=== PATIENT | male | born 1960 | race Caucasian/White ===

== ENCOUNTER 2024-04-21 08:24 | Outpatient (REF) | payer BC, SELFPAY ==
--- NOTE | ~2024-04-21 | XR_ITS ---
EXAMINATION: XR SHOULDER, RIGHT CLINICAL INFORMATION: M25.519 - Pain in unspecified shoulder COMPARISON: None. TECHNIQUE: AP external rotation, Grashey, scapular Y, and axillary views of the right shoulder. FINDINGS: Normal bone mineralization. No fracture, dislocation, or suspicious bone lesion. Normal alignment. There is mild to moderate degenerative arthritis in the glenohumeral joint with small superior and undersurface spurs. The AC joint demonstrates mild both superior and undersurface spurring. There is a posterolaterally downsloping acromion. No undersurface spurring. The subacromial space is preserved. Remainder of the soft tissue and bony structures appear normal. XR/XR shoulder RT min 2V IMPRESSION: 1. No acute findings right shoulder. 2. Mild to moderate degenerative arthritis in the glenohumeral joint and AC joint. Electronically signed by: Juan Deng MD 04/22/2024 10:45 AM [facility] [place]
--- NOTE | ~2024-04-21 | XR_ITS ---
EXAMINATION: XR SHOULDER, LEFT CLINICAL INFORMATION: M25.519 - Pain in unspecified shoulder COMPARISON: None available. TECHNIQUE: Three views of the left shoulder. FINDINGS: Normal bone mineralization. No fracture, dislocation, or suspicious bone lesion. Normal alignment. Mild degenerative arthritis in the glenohumeral joint. Minimal generative arthritis in the AC joint. No significant undersurface spurring. There is a posterolaterally downsloping acromion. No undersurface spurring. The subacromial space is preserved. Remainder of the soft tissue and bony structures appear normal. XR/XR shoulder LT min 2V IMPRESSION: 1. No acute findings left shoulder. 2. Mild degenerative arthritis in the AC joint and glenohumeral joint Electronically signed by: Juan Deng MD 04/22/2024 10:43 AM [facility]
--- OUTSIDE RECORDS SUMMARY | 2024-04-22 08:50 | XMS_ITS | Patient Health Record ---
Author Organization [facility] Address [address] [place] [address] Care Team Providers Care Supervisor Electric Name Role Phone Bruno Jo MD Primary Care Provider Stephen Mejia Unavailable [phone] Allergies No Known Allergies Reason For Referral [...] W/U Status Risk Notes Problem Tinea unguium (785578253) Tinea unguium (B35.1) Active confirmed Vital Signs Blood pressure diastolic 70 mm Hg 04/09/2024 Height 5ft 6in in 04/09/2024 Blood pressure systolic 120 mm Hg 04/09/2024 Weight 280 lbs 04/09/2024 BMI 45.19 kg/m2 04/09/2024 Procedures Procedure Date Ordered Date Performed Result Body Sit e 30650-QKIXLIR NAIL, 6 OR MORE 05/20/2023 N/A 16915-JFFLNNN NAIL, 6 OR MORE 10/14/2023 N/A 20368-DBGGFQY NAIL, 6 OR MORE 01/16/2024 N/A 98276-KTRSWYL NAIL, 6 OR MORE 04/09/2024 N/A Encounters Encounter Location Date Provider Diagnosis [address] [address] 05/20/2023 Stephen Rohini Tinea unguium B35.1 ; Pain in right toe(s) M79.674 ; Pain in left toe(s) M79.675 and Avulsion of toenail, initial encounter S91.209A [address] [address] 10/14/2023 Stephen Rohini Tinea unguium B35.1 ; Pain in right toe(s) M79.674 and Pain in left toe(s) M79.[address] [address] 01/16/2024 Stephen Rohini Tinea unguium B35.1 ; Pain in right toe(s) M79.674 and Pain in left toe(s) M79.[address] [address] 04/09/2024 Stephen Rohini Tinea unguium B35.1 ; Pain in right toe(s) M79.674 ; Pain in left toe(s) M79.675 and Xerosis of skin L85.[address] [address] 03/04/2024 Stephen Nova Assessments Encounter Date Diagnosis [...] X ray : Foot, right 3V 07/17/2021 70415-AFYFBEO NAIL, 6 OR MORE 07/24/2021 10178-SYGPVPS NAIL, 6 OR MORE 10/02/2021 93505-CKWZRLC NAIL, 6 OR MORE 12/25/2021 68287-HWPCRXC NAIL, 6 OR MORE 04/26/2022 21623-ESAONXR NAIL, 6 OR MORE 07/02/2022 80464-DWWHUQO NAIL, 6 OR MORE 09/17/2022 83645-ZQJWMAL NAIL, 6 OR MORE 12/03/2022 85177-NSUSMNW NAIL, 6 OR MORE 03/04/2023 85226-MDTZWSW NAIL, 6 OR MORE 05/20/2023 13076-PDXGBBN NAIL, 6 OR MORE 10/14/2023 27337-LABGWGY NAIL, 6 OR MORE 01/16/2024 34924-WRIOJHL NAIL, 6 OR MORE 04/09/2024 Next Appt Details Provider Name:Stephen Nova , 07/13/2024 03:15:00 PM, [address] [place] [address], [phone], Insurance Providers Payer Name Payer Address Payer Phone Subscriber Number Group Number Insured Name Patient Relationship to Insured Coverage Start Date Coverage End Date [facility] [address] [place] [address] [phone] [id number] Tony Cadena Self - patient is the insured Medical (General) History Medical History History ICD Code High blood pressure Arthritis Back,Hip,and Knee pain Cataracts Depression Reflux ( GERD) Chicken pox Surgical History Surgery Date(Month/Year) eye surgery 1979,2019 hernia 1966
--- OUTSIDE RECORDS SUMMARY | 2024-04-22 08:50 | XMS_ITS ---
Author Organization [facility] Address [address] [place] [address] Care Team Providers Care Denture Contour Wire Specialist Name Role Phone Bruno Jo MD Primary Care Provider UnavailStephen Vitale Unavailable [phone] REASON FOR VISIT too soon Encounters Encounter Location Date Provider Diagnosis [address] [address] 03/09/2024 Stephen Nova Plan Of Treatment Next Appt Details Provider Name:Stephen Nova , 07/13/2024 03:15:00 PM, [address] [place] [address], [phone], Progress Notes * Tony GUILLAUME IIDOB:1 03/24/1959 (64 yo M)Acc No.[id number]:03/09/2024 Progress Note Patient:?Tony GUILLAUME II Provider:?Stephen Nova DPM :1960???Age:64 Y???Sex:Male Elier e:03/09/2024 Address:[address] [place], [place] [address] Pcp:Bruno Jo MD Subjective: * Chief Complaints: [...] Nova DPM Date:?2024 Generated for Beto mccartney/Ean/Tacos on:?04/22/2024 08:50 AM EST
--- OUTSIDE RECORDS SUMMARY | 2024-04-22 08:51 | XMS_ITS ---
Author Organization [facility] Address [address] [place] [address] Care Team Providers Care Rotary Rig Engine Operator Name Role Phone Bruno Jo MD Primary Care Provider Stephen Mejia Unavailable [phone] Allergies No Known Allergies REASON FOR VISIT [...] Ordered Date Performed Result Body Sit e 02338-LAEUXSH NAIL, 6 OR MORE 04/09/2024 N/A Encounters Encounter Location Date Provider Diagnosis [facility] [address] [address] 04/09/2024 Stephen Nova Tinea unguium B35.1 ; [...] days Pending Test Test Name Order Date 22870-ROYOVDT NAIL, 6 OR MORE 04/09/2024 Next Appt Details Follow Up: prn, Reason: Provider Name:Stephen Nova , 07/13/2024 03:15:00 PM, [address] [place] [address], [phone], Procedure Notes * Category Sub-Category Detail Notes [...] use of a nail nipper and/or dremel-type precision grinder external, to a more viable healthy nail plate [...] to maintain effectiveness in symptomatic relief - 59569 Progress Notes * Tony GUILLAUME IIDOB:1 03/24/1959 (64 yo M)Acc No.[id number]:04/09/2024 Progress Note Patient:?Tony GUILLAUME II Provider:?Stephen Nova DPM :1960???Age:64 Y???Sex:Male Elier e:04/09/2024 Address:[address] [place] [address] Pcp:Bruno Jo MD Subjective: * Chief Complaints: [...] work. ?Marital status: . ?Occupation: [employer]. ???Drug/Alcohol:?AUDIT-C (Standard)?Did you have a drink containing [...] use of a nail nipper and/or dremel-type precision grinder external, to a more viable healthy nail plate [...] to maintain effectiveness in symptomatic relief - 15413.? * Procedure Codes:?10908 DEBRI DE NAIL, 6 OR MORE * [...] for Beto mccartney/Ean/Tacos on:?04/22/2024 08:50 AM EST History and Physical Notes * HPI [...]
--- OUTSIDE RECORDS SUMMARY | 2024-04-22 08:51 | XMS_ITS ---
Author Organization [facility] Address [address] [place] [address] Care Team Providers Care Die Repair Machinist Name Role Phone Bruno Jo MD Primary Care Provider Stephen Mejia Unavailable [phone] REASON FOR VISIT appt too soon Encounters Encounter Location Date Provider Diagnosis [facility] [address] [address] 03/04/2024 Stephen Nova Plan Of Treatment Next Appt Details Provider Name:Stephen Nova , 07/13/2024 03:15:00 PM, [address] [place], [address], Progress Notes * Tony ORLANDO IIDOB:1 03/24/1959 (64 yo M)Acc No.[id number]:03/04/2024 Patient:?Tony ORLANDO II :1960???Age:64 Y???Sex:Male Address:[address] [place] [address], [address] * true * Date:? Generated for Printi bib/Ean/eTransmitting on:?04/22/2024 08:50 AM EST
--- OUTSIDE RECORDS SUMMARY | 2024-04-22 08:51 | XMS_ITS | Clinical Summary ---
Author Organization [facility] ity Address [address] [place] [address] Care Team Providers Care Cash Shortage Investigator Name Role Phone Bruno Jo MD Primary Care Provider [phone] Social History Tobacco Use Types Packs/Day Years [...] age to complete this topic Care Teams Cash Shortage Investigator Relationship Specialty Start Date End Date Bruno Jo MD [address] [place] [address] PCP - General 08/26/22
== END 2024-04-21 08:25 | disposition home or self-care (01) ==
LOC: HO.HOSX 08:24
PROVIDERS: Visit Provider Physician Assistant
DX: M25.512 Pain in left shoulder (principal); M25.511 Pain in right shoulder; M19.011 Primary osteoarthritis, right shoulder; M19.012 Primary osteoarthritis, left shoulder
CPT/HCPCS: 20610; 73030; J1010; J2003

== ENCOUNTER 2024-04-21 12:55 | Outpatient (AMB) | payer BC, SELFPAY ==
--- OUTSIDE RECORDS SUMMARY | 2024-04-21 13:05 | XMS_ITS | Patient Health Record ---
Author Organization [facility] Address [address] [place] [address] Care Team Providers Care Lead Pourer Name Role Phone Bruno Jo MD Primary Care Provider Stephen Mejia Unavailable [phone] Allergies No Known Allergies Reason For Referral No Information Medications Medication SIG (Take, Route, Frequency, Duration) Notes Start Date End Date Status Ammonium Lactate 12 % 1 application Externally to affected areas of dry skin to feet except for between the toes Twice a day for 30 days Active hydroCHLOROthiazide 25 MG TAKE 1 TABLET ONCE A DAY ORALLY 30 DAY(S) Oral for 30 Active amLODIPine Besylate 5 MG as directed Ora lly Once a day Active Fluoxetine Not-Takin g Omeprazole 20 MG 1 capsule 30 minutes before morning meal Orally Once a day for 30 day(s) Active Immunizations Vaccine Route Administration Date Status Comme nts COVID-19 Moderna Vaccine Unknown 02/26/2021 Administered 1st 06/01/20 2nd 06/29/20 Social History Tobacco Use: Social History Observation Description Date Details (start date - stop date) Never Smoker NA - NA Tobacco use other than smoking: Question Answer Notes Are you an other tobacco user? Yes C igars, 2 per day for 15 years Tobacco Control (Standard) Question Answer Notes Tobacco use: Nonsmoker Additional Findings: Tobacco non-user Current no nsmoker AUDIT-C (Standard) Question Answer Notes Did you have a drink containing alcohol in the p ast year? No Points 0 Interpretation Negative Problems Problem Type SNOMED Code ICD Code Onset Dates Problem Status W/U Status Risk Notes Problem Tinea unguium (230186691) Tinea unguium (B35.1) Active confirmed Vital Signs Blood pressure diastolic 70 mm Hg 04/09/2024 Height 5ft 6in in 04/09/2024 Blood pressure systolic 120 mm Hg 04/09/2024 Weight 280 lbs 04/09/2024 BMI 45.19 kg/m2 04/09/2024 Procedures Procedure Date Ordered Date Performed Result Body Sit e 50357-KKGHPAX NAIL, 6 OR MORE 05/20/2023 N/A 27027-FFVECZU NAIL, 6 OR MORE 10/14/2023 N/A 77640-MSXVLPX NAIL, 6 OR MORE 01/16/2024 N/A 65543-KBNNHFI NAIL, 6 OR MORE 04/09/2024 N/A Encounters Encounter Location Date Provider Diagnosis [address] [address] 05/20/2023 Stephen Rohini Tinea unguium B35.1 ; Pain in right toe(s) M79.674 ; Pain in left toe(s) M79.675 and Avulsion of toenail, initial encounter S91.209A [address] [address] 10/14/2023 Stephen Rohini Tinea unguium B35.1 ; Pain in right toe(s) M79.674 and Pain in left toe(s) M79.[address] [address] 01/16/2024 Stephen Rohini Tinea unguium B35.1 ; Pain in right toe(s) M79.674 and Pain in left toe(s) M79.[address] [address] 04/09/2024 Stephen Rohini Tinea unguium B35.1 ; Pain in right toe(s) M79.674 ; Pain in left toe(s) M79.675 and Xerosis of skin L85.[address] [address] 03/04/2024 Stephen Nova Assessments Encounter Date Diagnosis (ICD Code) Assessment Notes Treatment Notes Treatment Clinical Notes Section Notes 05/20/2023 Tinea unguium (ICD-10 - B35.1) 05/20/2023 Pain in right toe(s) (ICD-10 - M79.674) 10/14/2023 Tinea unguium (ICD-10 - B35.1) 10/14/2023 Pain in right toe(s) (ICD-10 - M79.674) 01/16/2024 Tinea unguium (ICD-10 - B35.1) 01/16/2024 Pain in right toe(s) (ICD-10 - M79.674) 04/09/2024 Tinea unguium (ICD-10 - B35.1) 04/09/2024 Pain in right toe(s) (ICD-10 - M79.674) 04/09/2024 Pain in left toe(s) (ICD-10 - M79.675) 01/16/2024 Pain in left toe(s) (ICD-10 - M79.675) 10/14/2023 Pain in left toe(s) (ICD-10 - M79.675) 05/20/2023 Pain in left toe(s) (ICD-10 - M79.675) 05/20/2023 Avulsion of toenail, initial encounter (ICD-10 - S91.209A) 04/09/2024 Xerosis of skin (ICD-10 - L85.3) Plan Of Treatment Pending Test Test Name Order Date X ray : Foot, left 3V 07/17/2021 X ray : Foot, right 3V 07/17/2021 95058-TWKGGEM NAIL, 6 OR MORE 07/24/2021 27092-IHKEMZJ NAIL, 6 OR MORE 10/02/2021 58381-BEQPVKT NAIL, 6 OR MORE 12/25/2021 28078-MCXCVYP NAIL, 6 OR MORE 04/26/2022 34413-BWCDXBB NAIL, 6 OR MORE 07/02/2022 15339-CTBVMQB NAIL, 6 OR MORE 09/17/2022 27171-GLFXJRS NAIL, 6 OR MORE 12/03/2022 56743-NWNVHKT NAIL, 6 OR MORE 03/04/2023 64603-GRPEFIH NAIL, 6 OR MORE 05/20/2023 52924-AMCUKKO NAIL, 6 OR MORE 10/14/2023 07876-BWYBIZO NAIL, 6 OR MORE 01/16/2024 06296-MBCWFXF NAIL, 6 OR MORE 04/09/2024 Next Appt Details Provider Name:Stephen Nova , 07/13/2024 03:15:00 PM, [address] [place] [address], [phone], Insurance Providers Payer Name Payer Address Payer Phone Subscriber Number Group Number Insured Name Patient Relationship to Insured Coverage Start Date Coverage End Date [facility] [address] [place] [address] [id number] Tony Cadena Self - patient is the insured Medical (General) History Medical History History ICD Code High blood pressure Arthritis Back,Hip,and Knee pain Cataracts Depression Reflux ( GERD) Chicken pox Surgical History Surgery Date(Month/Year) eye surgery 1979,2019 hernia 1966
--- OUTSIDE RECORDS SUMMARY | 2024-04-21 13:05 | XMS_ITS | Data Portability ---
Author Organization [place] [facility] Office Address [address] [facility] [place] [address] Care Team Providers Care Mill Work Name Role Phone CORNELIUS DANIEL Primary Care Provider Assessment Encounter Date Assessment Date Assessment LastModified by Organization Details LastModified Time 05/06/2023 05/06/2023 Independent interpretation the x-rays from today and the clinical examination of the left hip shows dramatic end-stage bone against bone severe degeneration the left hip with loss of joint space, subchondral sclerosis, osteophyte formation, extremely limited motion and function but with a body mass index of 47. His right hip shows some moderate to severe arthritic change but the left hip is really end-stage. We? v e discussed the many forms of conservative care for the treatment of the pain and disability of hip arthritis. Prescription and over the counter NSAIDS have been discussed. These have been offered to those patients who can tolerate the medications and have no contraindications . He has been using ibuprofen as well as oxycodone for the pain. Next, we? v e discussed injection into the hip joint with ultrasound or fluoroscopy with a steroid solution. The pros and the cons were discussed and these can be made available on a more infrequent and limited basis. He has had 3 injections into the hip.He reports the most recent injection was not very helpful. Moderation of activities, use of a cane or crutch, exercise modalities were all discussed. Physical therapy can be considered to help with disability and limited motion but has little ability to improve pain. He is using a cane at this time and can barely walk. Finally, we have talked about total hip arthroplasty as the treatment for the intractable hip pain patient. We discussed the potential for total hip arthroplasty. With his body mass index now at 47 he is not a candidate for elective total hip arthroplasty in my practice. I have suggested that he can certainly move onto another orthopedic surgeon. The other option is for him to visit with his primary care physician and try to attack his body weight is aggressively as possible. I believe the ibuprofen is still suitable if he is able to tolerate that. The cane is a good idea. Also noted in his x-ray is a substantial deformity at his pubic symphysis and in the inferior portion of his pelvis. He reports he had a pelvic fracture this year. He does not report a fall or trauma. He was seen in an emergency department or urgent care and told that he had problems at that location. I do not know that that is been sufficiently evaluated. I am going to recommend an MRI scan of his lower pelvis to see what may be happening at the pubic symphysis and the in the lower portion of his pelvis. He will revisit with me in 8 to 10 weeks. No x-ray. We will review the MRI scan and his progress with his body weight. All questions answered. [email or web address] Not available 05/06/2023 08:19:51 Plan of Treatment Reminders Order Date Submit Date Provider Last Modified By Organization Details Last Modified Time Details Appointments None recorded. Lab None recorded. Referral None recorded. Procedures None recorded. Surgeries None recorded. Imaging MRI, pelvis, w/o contrast 2023 024 [facility] ([facility]), [address] [facility] [place], [place], [address], 4 13:40:07 Medication Orders None recorded. Patient TargetsNo targets recorded. Patient Instructions Encounter Date Encounter Id Patient Instructions Last Modified By Organization Details Last Modified Time 05/06/2023 [id number] When You Want to Lose Weight: Care Instructions [email or web address] Not available 05/06/2023 08:21:02 Reason for Referral None Reported. Results Created Date Observation Date Name Description Value Unit Range Abnormal Flag Note LastModifiedBy Organization Detail LastModifiedTime 05/14/19 24 05/12/2023 MRI, pelvi s, w/o contr ast [facility] Access ion Number : [id number] Jeff lua Name: Keron Johnson Medica l Record Number : [id number] Date of : 1959 Date of Exam: 2023 Referr ing Physic marilyn: Henry Blanco rn, Rey villagran [facility] [address] [facility] [place] [address] Exam: MR Pelvis (C-) CPT 98180 Room Descri ption: [place] Siem Espr 1.5 Clinic al Histor y: Multip le fractu res of the pelvis with disrup tion of pelvic surgic al, initia l encoun ter. The patien t report s modera te bilate ral pelvic and hip pain occurr ing daily for 4 years with worsen ing, diffic ulty walkin g. Techni que: MRI of the pelvis was perfor med withou t intrav enous contra st. Compar angel: CT of the pelvis dated 10/05/19 23. Findin gs: Bone and articu lar cartil age: Again seen is fractu re of the periac etabul ar left superi or pubic ramus and left inferi or pubic ramus with mild associ ated marrow edema. Callus format ion is seen about the inferi or pubic ramus fractu re site. There is inferi or positi oning of the medial left pubic bone relati ve to the right by approx imatel y 15 mm, worsen ed as compar ed to prior CT. Vertic ally orient ed fractu re of the right sacral ala with surrou nding marrow edema is seen. There is degene rative change of both sacroi liac joints with subcho ndral marrow edema and bony prolif eratio n around the left sacroi liac joint. No discre te erosio ns at either sacroi liac joint are seen. There is degene rative change in both hips with severe chondr al thinni ng in the left where there is also subcho ndral marrow edema involv ing both the femora l and acetab ular surfac es as well as subcho ndral cysts greate r on the femora l side. No signif icant hip joint effusi ons. Soft tissue s: There is decrea sed muscle bulk of the left psoas with mild edema within the left iliops oas. The iliops oas tendon s appear intact . Mild tendin opathy is seen of the proxim al hamstr ings. No eviden ce of full-t hickne ss tear of the gluteu s minimu s or gluteu s medius tendon s. There is a 1.2 cm left inguin al lymph node. Multip le additi onal subcen timete r bilate ral inguin al lymph nodes are seen. Impres mai: 1. Subacu te left superi or and inferi or pubic rami and right sacral ulnar fractu res with progre ssion of offset at the pubic symphy sis. 2. Decrea sed muscle bulk of the left iliops oas with edema in the left iliops oas, which may reflec t muscle strain or evolvi ng atroph y. 3. Degene rative change in both hips, left greate r than right. 4. Degene rative change in both sacroi liac joints withou t discre te erosio ns to sugges t sacroi liitis . Electr onical ly Signed By: Nubia Ziegler ra, MD [email or web address] [facility] ([facility]) [address] [place], [address], 06/30/2023 10:18:20 05/15/19 24 MRI, pelvi s, w/o contr ast No observ ation record ed. [email or web address] [facility] ([facility]) [address], [place], [address], 06/30/2023 10:18:20 Result Notes None recorded. Procedures Surgical History Date Name Laterality Status Provider Name and Address Organization Details Recorded Time 04/01/2023 Other completed Brooke Hernandez [place] - [facility] 05/06/2023 07:52:29 Imaging Results Imaging Date Name Status LastModified by Organiz ation Details LastModified Time 05/12/2023 MRI, pelvis, w/o contrast completed [facility] ([facility]) [address] [place], [address], 06/30/2023 10:18:20 05/15/2023 MRI, pelvis, w/o contrast completed [email or web address] [facility] ([facility] [address], [place], [address], 06/30/2023 10:18:20 Procedure Notes None recorded. Medical Equipment None Reported. Allergies No known drug allergies Medications Name Sig Start Date Stop Date Status Note LastModified by Organization Details LastModified Time hydrochlorothi azide 25 mg tablet Take 1 tablet every day by oral route. active Not Available Not Available No t Available acetaminophen 500 mg capsule Take 2 capsules every 6 hours by oral route. active Not Available Not Available No t Available oxycodone PRN active Not Available Not Mayra ilable Not Available calcium active Not Available Not Avail able Not Available omeprazole active Not Available Not Av ailable Not Available ibuprofen active Not Available Not Mayra ilable Not Available amlodipine active Not Available Not Av ailable Not Available trazodone active PRN Not Available Not Mayra ilable Not Available Vitals Date Recorded Body height Provider Name an d Address Organization Details Last Updated DateTime 05/06/2023 167.64 cm Brooke Hernandez [facility] 05/06/2023 07:59:19 Date Recorded Body mass index (BMI) Body weight Provider Name and Address Organization Details Last Updated DateTime 05/06/2023 47 kg/m2 458657.38 g Diane Mcgovern [facility] 05/06/2023 08:04:03 Social History Question Answer Notes LastModified by Organizat ion Details LastModified Time Tobacco Smoking Status Current Some Day [facility]/06/[facility]23 07:52:29 What Is Your Level Of Alcohol Consumption? Moderate Information not available 05/06/2023 Do You Or Have You Ever Used E-cigarettes Or Vape? Never Used Electronic Cigarettes Information not available 05/06/2023 What Is Your Occupation? [employer] Information not available 05/06/2023 Do You Or Have You Ever Used Smokeless Tobacco? Never Used Smokeless Tobacco Information not available 05/06/2023 How Much Tobacco Do You Smoke? No Information not available 05/06/2023 How Many Years Have You Smoked Tobacco? 40 Information not available 05/06/2023 Sex: Unknown Functional Status None recorded. Mental Status None recorded. Family History Relationship Description Onset Age of this Age Resolved Age Notes LastModified by Organization Details LastModified Time Mother Diabetes mellitus [email or web address] Not available 2023 07:59:47 Medical History Condition Response Blood Clots / Phlebitis N HIV or AIDS N Heart Problems N High Blood Pressure Y Depression or Anxiety Y Irregular Heartbeat N MRSA N Emphysema / Chronic Bronchitis N Any Other Significant Medical Issues N Reaction to General/Local Anesthesia N Hepatitis / Jaundice N Weight Gain / Loss N Kidney / Bladder Infections N Diabetes N Bleeding Disorder N Hearing Loss N Angina, Heart Failure or Attack N Night Sweats N Seizures / Epilepsy N Osteoarthritis / Rheumatoid arthritis / Other N Cancer N Stroke N Chemical Dependency / Alcoholism N Ulcer / Stomach Bleeding / Indigestion Y Visual Loss or Glaucoma N Psoriasis / Skin Rash N Thyroid Disorder N Heart Disease N Asthma / Shortness of Breath / Sleep Flavorer ea (please specify) N Pulmonary Embolism N Past Encounters Encounter ID Performer Location Encounter Start Date Encounter Closed Date Diagnosis/Indication Diagnosis SNOMED-CT Code Diagnosis ICD10 Code Diagnosis Note [id number] PASCUAL CARRILLO MD [address] [address] 05/06/2023 07:21:50 05/06/2023 10:26:48 Osteoarthritis of left hip joint 2456721340 20279 M16.12 Morbid obesity 054738908 E66.01 Multiple c losed fractures of pelvis with disruption of pelvic [place] 34030282 S32.810A Health Concerns Section Related Observation LastModified by Organization Detai ls LastModified Time None Recorded Concern Status LastModified by Organization Details LastModified Time None Recorded Advance Directives Directive None Recorded Payers Encounter Date Sequence Insurance Name Policy Number Policy Pena Covered Member ID Pena Member ID Guarantor Name 05/06/2023 1 [place] [id number] Faby Guillaume [id number] Tony Guillaume Notes Date Note Type Note Provider Name and Address Organization Details Recorded Time 05/06/2023 text/html Pablo unger presents for evaluation of his left hip. He reports more than 5 years of increasing pain in his left hip. He reports he has had really quite miserable function of the left hip over the last few months. He has had 3 injections in the hip. The first 1 did not help and the second 1 did help him very much but the third 1 did not last. He is taking ibuprofen. He is also taking oxycodone. He is using a cane. He is limping terribly. He cannot really work. He cannot stand up straight. He cannot straighten out his hip. He reports the right hip is not doing great but the left hip is completely intractably painful. He cannot really sleep. He is very unhappy with the left hip. PASCUAL CARRILLO MD [address] [place] [address], [phone], [facility] 05/06/2023 08:21:05
--- OUTSIDE RECORDS SUMMARY | 2024-04-21 13:06 | XMS_ITS ---
Author Organization [facility] Address [address] [place] [address] Care Team Providers Care Industrial Rehabilitation Consultant Name Role Phone Bruno Jo MD Primary Care Provider Stephen Mejia Unavailable [phone] REASON FOR VISIT appt too soon Encounters Encounter Location Date Provider Diagnosis [facility] [address] [address] 03/04/2024 Stephen Nova Plan Of Treatment Next Appt Details Provider Name:Stephen Nova , 07/13/2024 03:15:00 PM, [address] [place] [address], [phone], Progress Notes * Tony ORLANDO IIDOB:1 03/24/1959 (64 yo M)Acc No.[id number]:03/04/2024 Patient:?Tony ORLANDO II :1960???Age:64 Y???Sex:Male Address:[address] [place] [address], [address] * true * Date:? Generated for Printi bib/Ean/eTransmitting on:?04/21/2024 01:06 PM EST
--- OUTSIDE RECORDS SUMMARY | 2024-04-21 13:06 | XMS_ITS ---
Author Organization [facility] Address [address] [place] [address] Care Team Providers Care Plastic Battery Assembler Name Role Phone Bruno Jo MD Primary Care Provider UnavailStephen Vitale Unavailable [phone] REASON FOR VISIT too soon Encounters Encounter Location Date Provider Diagnosis [address] [address] 03/09/2024 Stephen Nova Plan Of Treatment Next Appt Details Provider Name:Stephen Nova , 07/13/2024 03:15:00 PM, [address] [place] [address], [phone], Progress Notes * Toyn GUILLAUME IIDOB:1 03/24/1959 (64 yo M)Acc No.[id number]:03/09/2024 Progress Note Patient:?Tony GUILLAUME II Provider:?Stephen Nova DPM :1960???Age:64 Y???Sex:Male Elier e:03/09/2024 Address:[address] [place], [place] [id number] Pcp:Bruno Jo MD Subjective: * Chief Complaints: * ???1. Too soon. * Medical History:? Objective: * Vitals:? Assessment: Plan: * Treatment: * Images: * The named appointment provid er may or may not be the originator of this progress note, and it is not deemed complete until electronically signed by the appointment provider. Sign off status: Pending * Provider:Federico Nova DPM Date:?2024 Generated for Beto mccartney/Ean/Tacos on:?04/21/2024 01:05 PM EST
--- OUTSIDE RECORDS SUMMARY | 2024-04-21 13:06 | XMS_ITS | Data Portability ---
Author Organization [facility], OFFICE Address [address] [address] Assessment Encounter Date Assessment Date Assessment LastModified by Organization Details LastModified Time 01/11/2022 01/11/2022 We discussed the issues related to his treatment. Mr. 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 LTHR is in We discussed the issues related to his treatment. He has radiographic evidence of end stage arthrosis of the left hip as demonstrated by severe joint space narrowing, subchondral sclerosis and periarticular osteophytes. He has a functional disability from the arthritis. Conservative therapy in the form of NSAIDs and flexibility and muscle strengthening exercises have been insufficiently helpful. Except for his current obesity, total hip arthroplasty is therefore appropriately indicated. We are going to see if we can help with that before scheduling surgery. Hopefully we can get toward a bmi of 40 if possible. We discussed the issues related to total hip arthroplasty in a lot of detail today including the preoperative process, the operative techniques, less invasive techniques, computer-assisted techniques, the types of implants, and the perioperative risks. In addition, we discussed the typical course following surgery and reasonable expectations for recovery, outcome, activity level, and long-term followup. We will work on weight loss first and determine further treatment thereafter. This visit was conducted as a real-time telehealth interactive video visit during this ongoing pandemic. He was identified and consented to this telehealth visit. I spent a total of 25 minutes during this encounter. Greater than 50% of the time was devoted to counseling and coordinating care. This included reviewing records and pertinent studies, discussing diagnostic evaluation and workup, planning therapeutic interventions, and formulating the future disposition of care. sbm Not available 01/11/2022 14:37:14 Plan of Treatment Reminders Order Date Submit Date Provider Last Modified By Organization Details Last Modified Time Details Appointments None record ed. Lab None record ed. Referral None record ed. Procedures None record ed. Surgeries None record ed. Imaging None record ed. Medication Orders None record ed. Patient TargetsNo targets recorded. Patient InstructionsNo instructions recorded. Reason for Referral None Reported. Problems No Known Problems Medical Equipment None Reported. Allergies No known drug allergies Medications Name Sig Start Date Stop Date Status Note LastModified by Organization Details LastModified Time trazodone 50 mg tablet TAKE 1-2 TABLETS BY MOUTH AT BEDTIME, NEEDED active Not Available Not Available No t Available amlodipine 5 mg tablet TAKE 1 TABLET BY MOUTH EVERY DAY active Not Available Not Available No t Available omeprazole 20 mg capsule,delayed release TAKE 1 CAPSULE BY MOUTH EVERY DAY active Not Available Not Available No t Available hydrochlorothia zide 25 mg tablet TAKE 1 TABLET BY MOUTH EVERY DAY active Not Available Not Available No t Available fluoxetine 20 mg capsule TAKE 1 CAPSULE BY MOUTH EVERY DAY active Not Available Not Available No t Available Vitals Date Recorded Body height Body mass index (BMI) Body weight Provider Name and Address Organization Details Last Updated DateTime 01/11/2022 167.64 cm 51.6 kg/m2 579543.56 g Alesia Yen [place] - [facility] 01/11/2022 11:28:33 Social History None recorded. Functional Status None recorded. Mental Status None recorded. Family History Relationship Description Onset Age of this Age Resolved Age Notes LastModified by Organization Details LastModified Time Mother Diabetes mellitus sbm Not available 2021 14:31:58 Mother Chronic renal failure sbm Not available 2021 14:32:12 Father Congestive heart failure sbm Not available 2021 14:32:20 Medical History Condition Response Coronary Artery Disease N Heart Problems N Gout N Anxiety/Depression N Blood Transfusion N Hernia N Migraines N Thyroid Problems N COPD N Pacemaker N Anemia N Ulcers N Heart Attack (ME) N Diabetes N Bleeding Disorder N Orthotics N Arthritis N Seizures/Epilepsy N Blood Clot N Tuberculosis N AIDS/HIV N Cancer N Stroke N Asthma N Peripheral Vascular Disease N High Cholesterol N Hepatitis N Liver Disease N Rheumatoid Arthritis N Pulmonary Embolism N Hypertension N Osteoporosis N Kidney Disease Y Past Encounters Encounter ID Performer Location Encounter Start Date Encounter Closed Date Diagnosis/Indication Diagnosis SNOMED-CT Code Diagnosis ICD10 Code Diagnosis Note [id number] Jorge Mcdonald MD [facility] [address] [place] [address] 01/11/2022 11:20:44 01/13/2022 15:07:30 Health Concerns Section Related Observation LastModified by Organization Detai ls LastModified Time None Recorded Concern Status LastModified by Organization Details LastModified Time None Recorded Advance Directives Directive None Recorded Payers Encounter Date Sequence Insurance Name Policy Number Policy Pena Covered Member ID Pena Member ID Guarantor Name 01/11/2022 1 [place] ([place] [id number] Faby Guillaume [id number] Tony Guillaume Notes Date Note Type Note Provider Name and Address Organization Details Recorded Time 01/11/2022 text/html Hip(s) AthenaReported bypatient.Location:l eft; groin; thigh; buttocks Severity:severe Alleviating Factors:rest; stretching Aggravating Factors:standing; walking; weightbearing; exercise; going from sit to stand Associated Symptoms:no weakness; no numbness; no tingling; no swelling; no redness; no warmth; no ecchymosis; no catching/locking; no popping/clicking; no buckling; no grinding; no instability; no radiation down leg; no drainage; no fever; no chills; no weight loss; no change in bowel/bladder habits Prior Imaging:x ray Previous PT:did not help Jorge Mcdonald MD [address],[facility] [address], [place], [address], [place] - [facility] 01/11/2022 14:37:20
--- OUTSIDE RECORDS SUMMARY | 2024-04-21 13:06 | XMS_ITS | Clinical Summary ---
Author Organization [facility] ity Address [address] [place] [address] Care Team Providers Care Grad Intern Name Role Phone Bruno Jo MD Primary Care Provider [phone] Social History Tobacco Use Types Packs/Day Years Used Date Smoking Tobacco: Every Day Smokeless Tobacco: Never Alcohol Use Standard Drinks/Week Comments Never 0 (1 standard drink = 0.6 oz pur e alcohol) Sex and Gender Information Value Date Recorded Sex Assigned at Not on file Legal Sex Male 12:07 AM EST Gender Identity Not on file Sexual Orientation Not on file Obstetrics History Plan of Treatment Health Maintenance Due Date Last Done Comments DTaP,Tdap,and Td Vaccines (1 - Tdap) 1981 Pneumococcal Vaccine: 50+ Ye ars (1 of 2 - PCV) 1981 Pneumococcal Vaccine: Pediat rics (0 to 5 Years) and At-Risk Patients (6 to 64 Years) (1 of 2 - PCV) 1981 Zoster Vaccines (1 of 2) 01/23/2012 RSV Immunization Patients 60 + Years Old (1 - Risk 60-74 years 1-dose series) 2022 Cholesterol Screening (Lipid Panel) 04/01/2023 Colorectal Cancer Screening: Colonoscopy 04/01/2023 Depression Screening 04/01/2023 HIV Screening 04/01/2023 Hepatitis C Screening 04/01/2023 Social Influencers of Health Screening 04/01/2023 Hypertension/CHF/CAD Annual BMP Blood Test 04/04/2023 COVID-19 Vaccine ( - 2023-2 5 season) 2023 Influenza Vaccine (#1) 2023 HIB Vaccines Aged Out No longer eligi ble based on patient's age to complete this topic HPV Vaccines Aged Out No longer eligi ble based on patient's age to complete this topic Hepatitis A Vaccines Aged Out No long er eligible based on patient's age to complete this topic Hepatitis B Vaccines Aged Out No long er eligible based on patient's age to complete this topic IPV Vaccines Aged Out No longer eligi ble based on patient's age to complete this topic MMR Vaccines Aged Out No longer eligi ble based on patient's age to complete this topic Meningococcal ACWY Vaccine Aged Out N o longer eligible based on patient's age to complete this topic Meningococcal B Vacine Aged Out No lo nger eligible based on patient's age to complete this topic RSV Immunization Patients Un nitin 20 months Aged Out No longer eligible b ased on patient's age to complete this topic Varicella Vaccines Aged Out No longer eligible based on patient's age to complete this topic Care Teams Grad Intern Relationship Specialty Start Date End Date Bruno Jo MD [address] [place] [address] PCP - General 08/26/22
--- OUTSIDE RECORDS SUMMARY | 2024-04-21 13:06 | XMS_ITS ---
Author Organization [facility] Address [address] [place] [address] Care Team Providers Care Power Digger Operator Name Role Phone Bruno Jo MD Primary Care Provider Stephen Mejia Unavailable [phone] Allergies No Known Allergies REASON FOR VISIT Painful nail(s) aggrevated by shoes causing difficulty standing/walking, Skin problem(s) Medications Medication SIG (Take, Route, Frequency, Duration) [...] Once a day for 30 day(s) Active Social History Tobacco Use: Social History Observation [...] ast year? No Points 0 Interpretation Negative Vital Signs Height 5ft 6in in 04/09/2024 Weight 280 lbs 04/09/2024 BMI 45.19 kg/m2 04/09/2024 Blood pressure systolic 120 mm Hg 04/09/19 25 Blood pressure diastolic 70 mm Hg 025 Procedures Procedure Date Ordered Date Performed Result Body Sit e 83514-TYBKNHC NAIL, 6 OR MORE 04/09/2024 N/A Encounters Encounter Location Date Provider Diagnosis [facility] [address] [address] 04/09/2024 Stephen Nova Tinea unguium B35.1 ; Pain in right toe(s) M79.674 ; Pain in left toe(s) M79.675 and Xerosis of skin L85.3 Assessments Encounter Date Diagnosis (ICD Code) Assessment Notes Treatment Notes Treatment Clinical Notes Section Notes 04/09/2024 Tinea unguium (ICD-10 - B35.1) 04/09/2024 Pain in right toe(s) (ICD-10 - M79.674) 04/09/2024 Pain in left toe(s) (ICD-10 - M79.675) 04/09/2024 Xerosis of skin (ICD-10 - L85.3) Plan Of Treatment Medication Medication Name Sig Start Date Stop Date Notes Ammonium Lactate 12 % 1 application Exte rnally to affected areas of dry skin to feet except for between the toes Twice a day for 30 days Pending Test Test Name Order Date [id number]-[id number] NAIL, 6 OR MORE 04/09/2024 Next Appt Details Follow Up: prn, Reason: Provider Name:Stephen Nova , 07/13/2024 03:15:00 PM, [address] [place] [address], [id number], Procedure Notes * Category Sub-Category Detail Notes Debride Nail 6-10 Nail debridement Due to the cl inical pathology outlined in the exam findings, performance of this nail treatment is medically necessary as its management by an unskilled/untrained nonprofessional would put this patients foot and overall health at risk. Therefore, debridement to affected nail(s), as described in exam ( TA, T1, T2, T3, T4, T5, T6, T7, T8, T9 ), was performed exclusively by the physician of record to reduce/remove overall nail length, girth, thickness, subungual debris, and necrotic tissue, by manual and/or electrical means through the use of a nail nipper and/or dremel-type concrete wall grinder operator, to a more viable healthy nail plate or bed tissue 6-10 nails in total. Silver nitrate was used for any petechial bleeding as necessary. Definitive antifungal treatment options, both pharmaceutical and surgical, have been reviewed and discussed with the patient. The patient solely prefers the use of intermittent/as needed professional debridement services for their nail condition and understands the need for additional periodic treatments to maintain effectiveness in symptomatic relief - 53794 Progress Notes * Tony GUILLAUME IIDOB:1 03/24/1959 (64 yo M)Acc No.[id number]:04/09/2024 Progress Note Patient:?Tony GUILLAUME II Provider:?Stephen Nova DPM :1960???Age:64 Y???Sex:Male Elier e:04/09/2024 Address:[address] [place] [address] Pcp:Bruno Jo MD Subjective: * Chief Complaints: * ???Painful nail(s) aggrevate d by shoes causing difficulty standing/walkingSkin problem(s) * HPI: ???Painful Nails:?Pt States Last PCP Visit:?Date:?12/01/2023 ???Skin problems:?Nature:?dryness , scaling.?Location:?B/L .?Duration:?several days.?Course:?worse.? * ROS:?General/Constitutional:?Nausea?denies.?Vomiting?denies.?Hunger Thirst?denies.?Loss appetite?denies.?Chills?denies.?Fatigue?denies.?Fever?denies.?Night Sweats?denies.?Unexplained weight loss?denies.?Unexplained weight gain?denies.?HEENTM:?Dentures?admits.?Dizziness?denies.?Glasses/contacts?admits.?Retinopathy?de nies.?Blurred/double vision?denies.?TMJ?denies.?Discharge/drainage?denies.?Implants?denies.?Sore throat?denies.?Dental implants?denies.?Hard of hearing ?denies.?Difficulty chewing/swallowing/speaking?denies.?Nose bleeds?denies.?Sore mouth?denies.?Respiratory:?On Oxygen?denies.?Pneumonia/pleurisy?denies.?Bronchitis?denies.?Emphysema?denies.?C oughing?denies.?Cough blood?denies.?Shortness of breath?denies.?Wheezing?denies.?Cardiovascular:?Pacemaker?denies.?MVP?denies.?WPW?denies.?CHF?denies.?Heart attack?denies.?Septal defect?denies.?Rapid beat?denies.?Chest pain ?denies.?Atrial Fib.?denies.?Murmur/Palpitations?denies.?Gastrointestinal:?Hemorrhoids?denies.?Stomach/Abdominal pain?denies.?Dark blood stool?denies.?Irritable bowel ?denies.?Constipation?denies.?Diarrhea?denies.?Hematology:?Swelling?denies.?Clots?denies.?Varicose Veins?denies.?Bruising?denies.?Bleeding problem?denies.?Genitourinary:?Blood urine?denies.?Frequent/Painfu/urination/bladder control?denies.?Kidney stones?denies.?Infection (UTI)?denies.?Nephropathy?denies.?sex trans dis (STD)?denies.?Prostate?denies.?Musculoskeletal:?Hammertoes?denies.?Bunions?denies.?Back Pain?denies.?Muscle Cramps/ Resting?denies.?Muscle cramps / walking?denies.?Generalized aches and pains?denies.?Weakness?denies.?Integ.:?Ramirez?denies.?Scars?denies.?Corns/calluses?admits.?Ingrown nails?admits.?Painful nails?admits.?Open Sores?denies.?Rashes?denies.?Neurologic:?Difficulty sleeping?admits.?Brain disorder?denies.?Numbness?denies.?Balance trouble?denies.?Confusion?denies.?Fainting/blackouts?denies.?Tingling?denies.?Tr emors?denies.? * Medical History:? * Surgical History:?eye surger y 1979,2020hernia 1965 * Hospitalization/Major Diagno stic Procedure:?Denies Past Hospitalization * Family History:?Mother: dece ased, Kidney/Liver Disease, diagnosed with Diabetic - NIDDM, Other specified conditions influencing health status.?Father: , Stroke, diagnosed with Unspecified essential hypertension, Unspecified heart disease, Unspecified cerebral artery occlusion with cerebral infarction, Family history of arthritis.? * Social History:?Tobacco Use:?Tobacco use other than smoking?Are you an other tobacco user??Yes Cigars, 2 per day for 15 years ?Tobacco Control (Standard)?Tobacco use:?Nonsmoker ?Additional Findings: Tobacco non-user?Current nonsmoker ???Drugs/Alcohol:?Drugs?Have you used drugs other than those for medical reasons in the past 12 months??No ???Miscellaneous:?Caffeine: yes, 40oz per day. ?Children: yes, 4. ?Exercise: yes, active work. ?Marital status: . ?Occupation: [employer]. ???Drug/Alcohol:?AUDIT-C (Standard)?Did you have a drink containing alcohol in the past year??No ?Points?0 ?Interpretation?Negative * Medications:?TakingamLODIPin e Besylate 5 MG Tablet as directed Orally Once a day hydroCHLOROthiazide 25 MG Tablet TAKE 1 TABLET ONCE A DAY ORALLY 30 DAY(S) Oral Omeprazole 20 MG Capsule Delayed Release 1 capsule 30 minutes before morning meal Orally Once a day Taking amLODIPine Besylate 5 MG Tablet as directed Orally Once a day Taking hydroCHLOROthiazide 25 MG Tablet TAKE 1 TABLET ONCE A DAY ORALLY 30 DAY(S) Oral Taking Omeprazole 20 MG Capsule Delayed Release 1 capsule 30 minutes before morning meal Orally Once a day Not-Taking/PRNFluoxetine Medication List reviewed and reconciled with the patientNot-Taking/PRN Fluoxetine Medication List reviewed and reconciled with the patient * Allergies:?N.K.D.A.yes[Aller gies Verified] Objective: * Vitals:?Ht:5ft 6in, Wt:280, BMI:45.19, Shoe size:10.5DW, BP:120/70mm Hg, Ht-cm: 167.64 cm, Wt-k.01 kg. * Examination: ???Nails: ?NAILS are:?Elongated, overgrown, dystrophic, lytic, greater than 3mm thick, discolored and friable with crumbly malodorous subungual debris, with pain on palpation, TA, T1, T2, T3, T4, T5, T6, T7, T8, T9.?Dermatologic: ?SKIN FINDINGS:?Skin shows sign(s) of, dryness, scaling, in a stocking fashion, no fissure(s) present, B/L.? Assessment: * Assessment: 1.?Tinea unguium - B35.1 (Pr imary)???2.?Pain in right toe(s) - M79.674???3.?Pain in left toe(s) - M79.675???4.?Xerosis of skin - L85.3???Specify :Acute problem, Uncomplicated (3),Rx Management (4)??? Plan: * Treatment: 2.?Xerosis of skin? Start Ammonium Lactate Cream, 12 %, 1 application, Externally to affected areas of dry skin to feet except for between the toes, Twice a day, 30 days, 280, Refills 3.?? * Procedures:?Debride Nail 6-10:?Nail debridement?Due to the clinical pathology outlined in the exam findings, performance of this nail treatment is medically necessary as its management by an unskilled/untrained nonprofessional would put this patients foot and overall health at risk. Therefore, debridement to affected nail(s), as described in exam (?TA, T1, T2, T3, T4, T5, T6, T7, T8, T9?), was performed exclusively by the physician of record to reduce/remove overall nail length, girth, thickness, subungual debris, and necrotic tissue, by manual and/or electrical means through the use of a nail nipper and/or dremel-type concrete wall grinder operator, to a more viable healthy nail plate or bed tissue 6- 10 nails in total. Silver nitrate was used for any petechial bleeding as necessary. Definitive antifungal treatment options, both pharmaceutical and surgical, have been reviewed and discussed with the patient. The patient solely prefers the use of intermittent/as needed professional debridement services for their nail condition and understands the need for additional periodic treatments to maintain effectiveness in symptomatic relief - [id number].? * Procedure Codes:?98322 DEBRI DE NAIL, 6 OR MORE * Preventive Medicine:? ??Counseling:?Discussion:?-13: Office or other outpatient visit for the evaluation and management of an established patient, which required a medically appropriate history and/or examination and LOW level of DECISION MAKING for: 1 STABLE ACUTE UNCOMPLICATED PROBLEM, 2 OR MORE MINOR PROBLEMS, OR 1 STABLE CHRONIC PROBLEM, THAT POSE(S) A LOW RISK FOR MORBIDITY/MORTALITY. The visit on the day of the encounter encompassed interpreting the data and educating the patient as to the nature of their condition, treatment options available according to their individual PMH, meds, allergies, and overall health/living conditions, as well as any potential risks or complications that may occur from a failure to adhere to, and participate in, the recommended course of therapy. The discussion included a complete verbal, and/or written explanation of the examination results, any x-rays taken, the proposed diagnosis, and outline of the treatment plan. A schedule for future care needs was also explained. The patient verbalized an understanding of the instructions at this time and agreed to be an active participant in their treatment. If the patient should think of any questions or concerns after the visit, I have encouraged the patient to call the office.?Xerosis:?The patient was counseled on the diagnosis, potential etiologies, and treatment options for their skin condition. We discussed the risks and benefits of each option from performing no treatment, to utilizing OTC topical skin creams/ointments, to utilizing prescription topical creams/ointments, to utilizing customized compounded topical medications and use of nocturnal occlusion with any/all previously detailed therapies. We discussed the advantages and disadvantages of each possible treatment and importance for adherence to all the recommended therapies for optimum success and avoid potential complications such as open sore/infection/possible hospitalization. We discussed the potential effectiveness of each topical preparation as well as each ones possible side effects and/or patient medication interactions. Patient questions re: use, dosage, successful outcomes, and application consistency were reviewed and the patient verbalized that all answers were clearly understood. The patient has decided to apply Rx skin creams to their feet save the interspaces while paying special attention to the heels. Such was sent to their pharmacy at the time of visit.? ??Screening/Special Tests:?Fall Risk?Screening:?No falls in the past year ?FALLS: Screening for Future Fall Risk?Have you had any falls with injury in the past year??No * Follow Up:?prn * Images: * Sign off status: Completed true * Provider:?Stephen Nova DPM Date:?2024 Generated for Beto mccartney/Ean/Tacos on:?04/21/2024 01:05 PM EST History and Physical Notes * HPI (History of Present Illness) Category Sub-Category Detail Notes Category Not es Painful Nails Pt States Last PCP Visit: Date:: 12/01/2023 Skin problems Nature: dryness , scaling Location: B/L Duration: several days Course: worse Examination Category Sub-Category Detail Notes Category Not es Dermatologic SKIN FINDINGS: Skin shows sign( s) of, dryness, scaling, in a stocking fashion, no fissure(s) present, B/L Nails NAILS are: Elongated, overg rown, dystrophic, lytic, greater than 3mm thick, discolored and friable with crumbly malodorous subungual debris, with pain on palpation, TA, T1, T2, T3, T4, T5, T6, T7, T8, T9
--- NOTE | 2024-04-21 13:10 | A.OFFVIS_ITS ---
Vital Signs 04/21/24 13:16 Height 5 ft 6 in Weight 290 lb BMI 46.8 Intake Visit Reasons: MEDICAL DOCTOR- Bilat shoulder pain Intake Note: Tony is a 64 year old right hand dominant male who presents today for a new patient evaluation of bilateral shoulder pain. Patient reports his pain has been present for about 3 months after he lifted a heavy object, working on a machine. His pain is equal in both of his shoulders. States with activity such as lifting or ROM his pain increases. His pain radiates down his arm. No strength in his arms. Occasional numbness or tingling. Finds some relief with ibuprofen and Tylenol. Allergies No Known Allergies [No Known Allergies*] Allergy (Unverified 04/21/24 13:21) HPI HPI MEDICAL DOCTOR- Bilat shoulder pain: Details: Mr. Guillaume is a 64-year-old right-hand dominant male who presents to the office today for evaluation of bilateral shoulder pain. He reports that he has had shoulder pain for the past 3 months after he lifted a heavy object while working on machinery. His pain is equal in bilateral shoulders.states that lifting pushing or pulling and some motions cause an increase in pain. He reports that the pain radiates down his biceps to the elbow. He has occasional numbness and tingling. He has noticed a decrease in strength in bilateral upper extremities. He does have some relief with ibuprofen and Tylenol. [facility] Social History (Updated 04/21/24 @ 13:16 by LAKHWINDER Spears) Patient Tobacco Use Status: Current everyday Tobacco user Current occupational status: employed Current occupation: gordon, right hand dominant Review of Systems Const All systems reviewed & are unremarkable except as noted in HPI and below Physical Exam Vital Signs: BMI result Body Mass Index 46.8 Extrem Other: Right/Left shoulder: Normal to inspection. No ecchymosis, erythema, or edema. Full shoulder ROM in all planes but reports pain with the last 45 degrees of forward flexion and abduction. Positive pain with cross-body reach. 4-5 strength with empty can. Negative drop arm. NVI. Office Procedures AMB Joint Injection/Aspiration Joint Injection/Aspiration Primary Site: left shoulder Secondary Site: other Prep: site was prepped using aseptic technique, ethochloride spray was applied and injection warnings given Injected: 80 mg of, DepoMedrol, with 8 mL of (2% plain lido ) and in the subc romial space Approach Used: posterolateral Procedure: The patient tolerated the procedure well, but had some pain with the injection and there was some relief with the local anesthesia Coding 82106 - Large joint Procedure code (CPT) selection complete Assessment & Plan Assessment & Plan (1) Arthritis of both glenohumeral joints: Code(s): M19.011 - Primary osteoarthritis, right shoulder; M19.012 - Primary osteoarthritis, left shoulder Category: Medical (2) Bilateral acromioclavicular joint arthritis: Code(s): M19.011 - Primary osteoarthritis, right shoulder; M19.012 - Primary osteoarthritis, left shoulder Category: Medical Plan Mr. Guillaume is a 64-year-old right-hand dominant male who presents to the office today for evaluation of bilateral shoulder pain. He reports that he has had shoulder pain for the past 3 months after he lifted a heavy object while working on machinery. His pain is equal in bilateral shoulders.states that lifting pushing or pulling and some motions cause an increase in pain. He reports that the pain radiates down his biceps to the elbow. He has occasional numbness and tingling. He has noticed a decrease in strength in bilateral upper extremities. He does have some relief with ibuprofen and Tylenol. While in the office today we discussed the role of cortisone injection which the patient has elected to move forward with. The patient was offered a cortisone injection in bilateral shoulder with 80 mg of DepoMedrol. The patient was explained the risks, benefits, and alternatives to receiving this injection. After receiving consent for the injection, the patient had the procedure done while in the office today. The patient tolerated the procedure well with no complications. Follow-up will be p.r.n., or sooner if needed X-rays of bilateral shoulders which were obtained while in the office today and were reviewed by me, Juanita Gonzales PA-C, revealed bilateral shoulder glenohumeral joint arthritis as well as AC joint arthritis. Orders: Orders XR shoulder LT min 2V 04/21/24 M25.519 - Pain in unspecified shoulder XR shoulder RT min 2V 04/21/24 M25.519 - Pain in unspecified shoulder Coding Level of Care Code New Pt Level 3 (32673) Diagnoses Arthritis of both glenohumeral joints M19.011; M19.012 Bilateral acromioclavicular joint arthritis M19.011; M19.012 CPT Codes Coding - 36261 Large joint: 12240 - Large joint ([id number])
[2024-04-21 13:16] VITALS: BMI 46.8
== END 2024-04-21 13:56 | disposition home or self-care (01) ==
PROVIDERS: Visit Provider Physician Assistant
DX: M19.012 Primary osteoarthritis, left shoulder (principal); M19.011 Primary osteoarthritis, right shoulder
CPT/HCPCS: 20610; 99203

== ENCOUNTER → 2024-04-21 12:59 | Outpatient (BNV) | payer BC, SELFPAY | PROVIDERS: Visit Provider Radiology Diagnostic Radiology | DX: M19.011 Primary osteoarthritis, right shoulder (principal); M19.012 Primary osteoarthritis, left shoulder | CPT/HCPCS: 73030 ==

== ENCOUNTER 2024-06-04 11:08 | Outpatient (REF) | payer BC, SELFPAY ==
--- NOTE | ~2024-06-04 | XR_ITS ---
EXAMINATION: XR PELVIS 1-2 VIEWS HISTORY: M25.559 - Pain in unspecified hip COMPARISON: Comparison is made with prior outside studies from [facility] dated 10/02/2022. FINDINGS: A single AP view of the pelvis is submitted. Again seen is a chronic fracture deformity of the left superior and inferior pubic rami. There is greater inferior displacement of the fracture fragment when compared to the prior study. No acute fracture or dislocation is seen. There is severe osteoarthritis of the left hip with joint space narrowing, osteophyte formation, and subchondral cyst formation. There has been progression since the prior study. There is mild narrowing of the right hip. The sacroiliac joints are maintained. The soft tissues are unremarkable. XR/XR pelvis 1-2V IMPRESSION: 1. Severe osteoarthritis of the left hip with progression since the prior study. 2. Chronic fracture deformity of the left pubis with greater inferior displacement of the fracture fragment. Electronically signed by: Sumit Winslow MD 06/04/2024 02:53 PM EDT
== END 2024-06-04 11:09 | disposition home or self-care (01) ==
LOC: HO.HOSX 11:08
PROVIDERS: Visit Provider Orthopaedic Surgery
DX: M25.559 Pain in unspecified hip (principal); M16.52 Unilateral post-traumatic osteoarthritis, left hip
CPT/HCPCS: 72170

== ENCOUNTER 2024-06-04 11:08 | Outpatient (AMB) | payer BC, SELFPAY ==
--- NOTE | 2024-06-04 11:13 | MHC.OFFVIS ---
Intake Visit Reasons: New Prob - Left Hip Pain Intake Note: Tony is a 64 year old male who presents today for a new problem visit with complaints of Left Hip pain. Patient was referred by Juanita Gonzales to discuss possible Left REBEL. Patient reports that he has had ongoing left hip pain for about 5 years now. History of cortisone injections with NEOS. The injection was helpful for a few months, this was over two years ago. About a year ago he had QC Kinetix which did help. His pain is felt in the groin and lateral aspect of the hip. He reports that he also had history of a pelvis fracture that was increasing his pain . Allergies No Known Allergies [No Known Allergies*] Allergy (Unverified 04/21/24 13:21) HPI HPI New Prob - Left Hip Pain: Details: This is a 64-year-old gentleman who comes in today with left hip pain. 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 He uses a cane he walks with a bad limp. He has been having worsening difficulty after a pelvic ring injury sustained about 18 months ago. He states he stepped awkwardly into did and presented to the emergency department. He was seen at a local orthopedic office and referred out to [facility] and to a trauma surgeon there who recommended nonoperative management. He has been having worsening pain in his left groin. He describes difficulty getting into and out of a vehicle and pain with bending activities. Most of his pain is anterior left hip/groin. He is overweight and states he has been heavy my whole life . His BMI is 46. He reports being active and healthy but having a hard time completing his work activities. 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 [facility] Social History (Updated 04/21/24 @ 13:16 by LAKHWINDER Spears) Patient Tobacco Use Status: Current everyday Tobacco user Current occupational status: employed Current occupation: gordon, right hand dominant Physical Exam Extrem Other: Trendelenburg gait with minimal internal rotation of the left hip. Positive impingement test. Abduction to 10 degrees. 2+ dorsalis pedis pulse of the ipsilateral leg and hip flexion to 90 degrees. Results Reviewed Results Reviewed: Severe left hip osteoarthritis with ipsilateral injury to the superior pubic rami with pubic symphysis diastasis/displaced left inferior pubic rami. Imaging from 2023 shows moderate to severe osteoarthritis. Assessment & Plan Assessment & Plan (1) Post-traumatic osteoarthritis of left hip: Code(s): M16.52 - Unilateral post-traumatic osteoarthritis, left hip Category: Medical Plan: This is a 62-year-old gentleman with severe osteoarthritis of the left hip. 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 He is morbidly obese but he can not function and he would benefit from hip arthroplasty. Imaging demonstrates a history of superior pubic rami fracture with pubic symphysis irregularity. There is a inferiorly displaced left pubic symphyseal fragment with malunion of the superior pubic rami. I think this is a potentially difficult case with some question of pelvis discontinuity and that a referral to a tertiary care center for evaluation would be warranted. He is amenable to this plan. Orders: Orders XR pelvis 1-2V Today M25.559 - Pain in unspecified hip Coding Level of Care Code Est Pt Level 4 (49441) Diagnoses Post-traumatic osteoarthritis of left hip M16.52
--- OUTSIDE RECORDS SUMMARY | 2024-06-04 13:00 | XMS_ITS ---
Author Organization [facility] Address [address] [place] [address] Care Team Providers Care Scribing Machine Operator Name Role Phone Bruno Jo MD Primary Care Provider Stephen Mejia Unavailable [phone] REASON FOR VISIT appt too soon Encounters Encounter Location Date Provider Diagnosis [facility] [address] [address] 03/04/2024 Stephen Nova Plan Of Treatment Next Appt Details Provider Name:Stephen Nova , 07/13/2024 03:15:00 PM, [address] [place], [address], Progress Notes * Tony ORLANDO IIDOB:1 03/24/1959 (64 yo M)Acc No.[id number]:03/04/2024 Patient:?Tony ORLANDO II :1960???Age:64 Y???Sex:Male Address:[address] [place] [address], [address] * true * Date:? Generated for Printi ng/Fablankg/eTransmitting on:?06/04/2024 01:00 PM EDT
--- OUTSIDE RECORDS SUMMARY | 2024-06-04 13:00 | XMS_ITS ---
Author Organization [facility] Address [address] [place] [address] Care Team Providers Care Project Intern Name Role Phone Bruno Jo MD Primary Care Provider UnavailStephen Vitale Unavailable [phone] REASON FOR VISIT too soon Encounters Encounter Location Date Provider Diagnosis [address] [address] 03/09/2024 Stephen Nova Plan Of Treatment Next Appt Details Provider Name:Stephen Nova , 07/13/2024 03:15:00 PM, [address] [place] [address], [phone], Progress Notes * Tony GUILLAUME IIDOB:1 03/24/1959 (64 yo M)Acc No.[id number]:03/09/2024 Progress Note Patient:?Tony GUILLAUME II Provider:?Stephen Nova DPM :1960???Age:64 Y???Sex:Male Elier e:03/09/2024 Address:[address] [place], [place] [address] Pcp:Bruno Jo MD Subjective: * Chief Complaints: [...] Nova DPM Date:?2024 Generated for Beto mccartney/Ean/Tacos on:?06/04/2024 01:00 PM EDT
--- OUTSIDE RECORDS SUMMARY | 2024-06-04 13:00 | XMS_ITS | Patient Health Record ---
Author Organization [facility] Address [address] [place] [address] Care Team Providers Care Internet And E Business Project Manager Name Role Phone Bruno Jo MD Primary Care Provider Stephen Mejia Unavailable [phone] Allergies No Known Allergies Reason For Referral [...] W/U Status Risk Notes Problem Tinea unguium (273995142) Tinea unguium (B35.1) Active confirmed Vital Signs Blood pressure diastolic 70 mm Hg 04/09/2024 Height 5ft 6in in 04/09/2024 Blood pressure systolic 120 mm Hg 04/09/2024 Weight 280 lbs 04/09/2024 BMI 45.19 kg/m2 04/09/2024 Procedures Procedure Date Ordered Date Performed Result Body Sit e 17991-CHRNBRA NAIL, 6 OR MORE 10/14/2023 N/A 17669-HNPBONE NAIL, 6 OR MORE 01/16/2024 N/A 73023-YYLBMZL NAIL, 6 OR MORE 04/09/2024 N/A Encounters Encounter Location Date Provider Diagnosis [address] [address] 10/14/2023 Stephen Nova Tinea unguium B35.1 ; Pain in right toe(s) M79.674 and Pain in left toe(s) M79.[address] [address] 01/16/2024 Stephen Nova Tinea unguium B35.1 ; Pain in right toe(s) M79.674 and Pain in left toe(s) M79.[address] [address] 04/09/2024 Stephenlynne Nova Tinea unguium B35.1 ; Pain in right toe(s) M79.674 ; Pain in left toe(s) M79.675 and Xerosis of skin L85.[address] [address] 03/04/2024 Stephen Nova Assessments Encounter Date Diagnosis (ICD Code) Assessment Notes Treatment Notes Treatment Clinical Notes Section Notes 10/14/2023 Tinea unguium (ICD-10 - B35.1) 10/14/2023 [...] X ray : Foot, right 3V 07/17/2021 82190-QBPXQFP NAIL, 6 OR MORE 07/24/2021 37123-ZGTPGPB NAIL, 6 OR MORE 10/02/2021 14322-ASZEGGW NAIL, 6 OR MORE 12/25/2021 94648-CQBMKMI NAIL, 6 OR MORE 04/26/2022 36065-JKPUMYP NAIL, 6 OR MORE 07/02/2022 87771-QUITINM NAIL, 6 OR MORE 09/17/2022 00008-WEZRZPP NAIL, 6 OR MORE 12/03/2022 56743-LMKDLXK NAIL, 6 OR MORE 03/04/2023 90262-FRITNMR NAIL, 6 OR MORE 05/20/2023 08423-PZZBKOB NAIL, 6 OR MORE 10/14/2023 69789-QUJWAZU NAIL, 6 OR MORE 01/16/2024 43264-TWCQDNY NAIL, 6 OR MORE 04/09/2024 Next Appt Details Provider Name:Stephen Nova , 07/13/2024 03:15:00 PM, [address] [facility], [place], [address], Insurance Providers Payer Name Payer Address Payer Phone Subscriber Number Group Number Insured Name Patient Relationship to Insured Coverage Start Date Coverage End Date [facility] Card [address] [place] [address] [id number] Tony Cadena Self - patient is the insured Medical (General) History Medical History History ICD Code High blood pressure Arthritis Back,Hip,and Knee pain Cataracts Depression Reflux ( GERD) Chicken pox Surgical History Surgery Date(Month/Year) eye surgery 1979,2019 hernia 1966
--- OUTSIDE RECORDS SUMMARY | 2024-06-04 13:00 | XMS_ITS | Data Portability ---
Author Organization [facility] Address [address] [address] Assessment Encounter Date Assessment Date Assessment LastModified [...] Updated DateTime 01/11/2022 167.64 cm 51.6 kg/m2 830678.56 g Alesia Yen [place] - Comp-Assistd and [...] available 2021 14:32:20 Medical History Condition Response Heart Problems N Coronary Artery Disease N Anxiety/Depression N Gout N Blood Transfusion N Hernia N Migraines N Thyroid Problems N COPD N Pacemaker N Anemia N Ulcers N Heart Attack (NM) N Diabetes N Bleeding Disorder N Orthotics [...] SNOMED-CT Code Diagnosis ICD10 Code Diagnosis Note 41088 Jorge Mcdonald MD [facility] [address] [place] [address] 01/11/2022 11:20:44 01/13/2022 15:07:30 Health Concerns Section Related Observation LastModified by Organization Detai ls LastModified Time None Recorded Concern Status LastModified by Organization Details LastModified Time None Recorded Advance Directives Directive None Recorded Payers Encounter Date Sequence Insurance Name Policy Number Policy Pena Covered Member ID Pena Member ID Guarantor Name 01/11/2022 1 [place] ([place]) [id number] Faby Guillaume [id number] Tony Guillaume Notes Date Note Type [...] not help Jorge Mcdonald MD [address],[facility] [[email or web address] [address], [place], [address], [place] - Comp-Assistd and Rcnstrctive Surgry 01/11/2022 14:37:20
--- OUTSIDE RECORDS SUMMARY | 2024-06-04 13:00 | XMS_ITS ---
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 ; [...] days Pending Test Test Name Order Date [id number] NAIL, 6 OR MORE 04/09/2024 Next Appt Details Follow Up: prn, Reason: Provider Name:Stephen Nova , 07/13/2024 03:15:00 PM, [address] [place] [address], [phone], Procedure Notes * Category Sub-Category Detail Notes [...] of a nail nipper and/or dremel-type precision lens grinder apprentice, to a more viable healthy nail plate [...] to maintain effectiveness in symptomatic relief - 20810 Progress Notes * Tony GUILLAUME IIDOB:1 03/24/1959 (64 yo M)Acc No.[id number]:04/09/2024 Progress Note Patient:?Tony GUILLAUME II Provider:?Stephen Nova DPM :1960???Age:64 Y???Sex:Male Elier e:04/09/2024 Address:[address] [place] [address] Pcp:Bruno Jo MD Subjective: * Chief Complaints: [...] work. ?Marital status: . ?Occupation: [employer]. ???Drug/Alcohol:?AUDIT-C (Standard)?Did you have a drink containing [...] of a nail nipper and/or dremel-type precision lens grinder apprentice, to a more viable healthy nail plate [...] to maintain effectiveness in symptomatic relief - 53344.? * Procedure Codes:?60530 DEBRI DE NAIL, 6 OR MORE * [...] for Beto mccartney/Ean/Tacos on:?06/04/2024 01:00 PM EDT History and Physical Notes * HPI (History [...]
--- OUTSIDE RECORDS SUMMARY | 2024-06-04 13:00 | XMS_ITS | Data Portability ---
Author Organization [place] - [facility], [facility] - [facility]IENT Address [address] [place] [address] Care Team Providers Care Fishing Guide Name Role Phone MARÍACORNELIUS Primary Care Provider Assessment Encounter Date Assessment [...] with his body weight. All questions answered. [email or web address] Not available 05/06/2023 08:19:51 Plan of Treatment Reminders Order Date Submit Date Provider Last Modified By Organization Details Last Modified Time Details Appointments None recorded. Lab None recorded. Referral None recorded. Procedures None recorded. Surgeries None recorded. Imaging MRI, pelvis, w/o contrast 2023 024 [facility] ([facility]), [address] [facility], [place], [address], 4 13:40:07 Medication Orders None recorded. Patient TargetsNo targets recorded. Patient Instructions Encounter Date Encounter Id Patient Instructions Last Modified By Organization Details Last Modified Time 05/06/2023 [id number] When You Want to Lose Weight: Care Instructions [email or web address] Not available 05/06/2023 08:21:02 Reason for Referral None Reported. Results Created Date Observation Date Name Description Value Unit Range Abnormal Flag Note LastModifiedBy Organization Detail LastModifiedTime 05/14/1905/12/2023 MRI, pelvi s, w/o contr ast [facility] Access ion Number : [id number] Jeff lua Name: Keron Johnson Medica l Record Number : [id number] Date of : 1959 Date of Exam: 2023 Referr ing Physic marilyn: Henry Blanco rn, Rey villagran [facility] [address] [facility] [place] [address] Exam: MR Pelvis (C-) CPT 14574 Room Descri ption: [place] [facility] 1.5 Clinic al Histor y: [...] ly Signed By: Nubia Ziegler ra, MD [email or web address] [facility] ([facility]) [address] [place], [address], 06/30/2023 10:18:20 05/15/19 24 MRI, pelvi s, w/o contr ast No observ ation record ed. [email or web address] [facility] ([facility]) [address] [place], [address], 06/30/2023 10:18:20 Result Notes None recorded. Procedures Surgical History Date Name Laterality Status Provider Name and Address Organization Details Recorded Time 04/01/2023 Other completed Brooke Hernandez [place] - [facility] 05/06/2023 07:52:29 Imaging Results Imaging Date Name Status LastModified by Organiz ation Details LastModified Time 05/12/2023 MRI, pelvis, w/o contrast completed [email or web address] [facility] ([facility] [address] [place], [address], 06/30/2023 10:18:20 05/15/2023 MRI, pelvis, w/o contrast completed [email or web address] [facility] ([facility]) [address], [place], [address], 06/30/2023 10:18:20 Procedure Notes None recorded. Medical [...] Updated DateTime 05/06/2023 167.64 cm Brooke Hernandez [facility] 05/06/2023 07:59:19 Date Recorded Body mass index (BMI) Body weight Provider Name and Address Organization Details Last Updated DateTime 05/06/2023 47 kg/m2 021212.38 g Diane Mcgovern [facility] 05/06/2023 08:04:03 Social History Question Answer Notes LastModified by Organizat ion Details LastModified Time Tobacco Smoking Status Current Some Day Smoker Brooke heller [facility] 05/06/2023 07:52:29 What Is Your Level Of [...] available 2023 07:59:47 Medical History Condition Response HIV or AIDS N High Blood Pressure Y MRSA N Weight Gain / Loss N Angina, Heart Failure or Attack N Night Sweats N Osteoarthritis / Rheumatoid arthritis / Other N Cancer N Stroke N Visual Loss or Glaucoma N Heart Problems N Emphysema / Chronic Bronchitis N Reaction to General/Local Anesthesia N Hepatitis / Jaundice N Kidney / Bladder Infections N Bleeding Disorder N Chemical Dependency / Alcoholism N Thyroid Disorder N Pulmonary Embolism N Irregular Heartbeat N Any Other Significant Medical Issues N Hearing Loss N Seizures / Epilepsy N Ulcer / Stomach Bleeding / Indigestion Y Blood Clots / Phlebitis N Depression or Anxiety Y Diabetes N Psoriasis / Skin Rash N Heart Disease N Asthma / Shortness of Breath / Sleep Varnish Inspector ea (please specify) N Past Encounters Encounter ID Performer Location Encounter Start Date Encounter Closed Date Diagnosis/Indication Diagnosis SNOMED-CT Code Diagnosis ICD10 Code Diagnosis Note [id number] PASCUAL CARRILLO MD [address] [address] 05/06/2023 07:21:50 05/06/2023 10:26:48 Osteoarthritis of left hip joint 1985599545 63583 M16.12 Morbid obesity 568283195 E66.01 Multiple c losed fractures of pelvis with disruption of pelvic huslia 75971029 S32.810A Health Concerns Section Related Observation LastModified by Organization Detai ls LastModified Time None Recorded Concern Status LastModified by Organization Details LastModified Time None Recorded Advance Directives Directive None Recorded Payers Encounter Date Sequence Insurance Name Policy Number Policy Pena Covered Member ID Pena Member ID Guarantor Name 05/06/2023 1 [place] [id number] Faby Guillaume [id number] Tony Guillaume Notes Date Note Type [...] with the left hip. PASCUAL CARRILLO MD [address] [place] [address], [phone], [facility] 05/06/2023 08:21:05
--- OUTSIDE RECORDS SUMMARY | 2024-06-04 13:01 | XMS_ITS | Clinical Summary ---
Author Organization [facility] it Address [address] [place] [address] Care Team Providers Care Border Patrol Officer Name Role Phone Bruno Jo MD Primary Care Provider [phone] Social History Tobacco Use Types Packs/Day Years [...] Vaccines (1 of 2) 01/23/2012 RSV Immunization Adult Patie nts (1 - Risk 60-74 years 1-dose series) [...] age to complete this topic Care Teams Border Patrol Officer Relationship Specialty Start Date End Date Bruno Jo MD [address] [place] [address] PCP - General 08/26/22
== END 2024-06-04 11:48 | disposition home or self-care (01) ==
LOC: HO.HOS 11:08
PROVIDERS: Visit Provider Orthopaedic Surgery
DX: M16.52 Unilateral post-traumatic osteoarthritis, left hip (principal)
CPT/HCPCS: 99214

== ENCOUNTER → 2024-06-04 11:21 | Outpatient (BNV) | payer BC, SELFPAY | PROVIDERS: Visit Provider Radiology Diagnostic Radiology | DX: M16.12 Unilateral primary osteoarthritis, left hip (principal); S32.592A Other specified fracture of left pubis, initial encounter for closed fracture | CPT/HCPCS: 72170 ==